=== PATIENT | female | born 1990 | race Hispanic/Latino ===

== ENCOUNTER 2020-02-11 18:11 | Emergency (ER) | payer OTHER, SELFPAY ==
[2020-02-11 18:16] VITALS: BP 129/64; PULSE 71; RESP 18; TEMP 35.9; O2SAT 100
--- NOTE | 2020-02-11 19:09 | ED.PREGNANCY ---
HPI - General Chief complaint: Vaginal Bleeding Stated complaint: 10 weeks /bleeding Time Seen by Provider: 02/11/20 19:06 History of Present Illness HPI Narrative: 29 yo female at approximately 10 weeks gestation presents to the ED for vaginal bleeding. She has had spotting for the past 3 days. Today she started passing clots and cramping. She suspects that she is having a miscarriage. Related Data Allergies Allergy/AdvReac Type Severity Reaction Status Date / Time No Known Drug Allergies Allergy Unknown Verified 07/10/16 14:24 Review of Systems Review of Systems: All systems reviewed & are unremarkable except as noted in HPI and below Constitutional: Constitutional: Denies fever(s) Cardiovascular: Cardiovascular: Denies chest pain Respiratory: Respiratory: Denies dyspnea Gastrointestinal: Gastrointestinal: Denies diarrhea, Denies nausea and Denies vomiting Genitourinary: Genitourinary: Denies dysuria and Reports pelvic pain Neurologic: Denies dizziness and Denies weakness Hematologic/Lymphatic: Hematologic/Lymphatic: Denies easy bleeding [facility] Past Medical History Medical History (Updated 02/15/20 @ 14:13 by Scot Sequeira MD) Healthy adult Social History Social History (Updated 02/15/20 @ 14:13 by Scot Sequeira MD) Smoking status: Never smoker Gender identity (if verbalized by the patient): Female Exam Const: General: healthy appearing, no acute distress and alert Orientation/consciousness: patient oriented x3 HENMT: Head: normal to inspection Neck: Neck: normal visual inspection and no lymphadenopathy Chest: Chest palpation & inspection: no tenderness Resp: Effort & Inspection: normal respiratory effort Auscultation: clear to auscultation bilaterally, no rales, no rhonchi and no wheezes Cardio: Jugular venous distension: no JVD Rate: regular rate Rhythm: regular rhythm Heart sounds: no murmurs GI: Inspection: non-distended GI Palp: Yes Soft to palpation and No Tenderness to palpation present (GI) : Other: Cervix minimally open with what appears to be tissue exposed Skin: General skin exam: normal color Neuro: General: patient oriented x3 and moves all extremities Speech: normal speech Extrem: General: no edema Psych: Appearance: well kempt Affect: normal affect Course Vital Signs Vital signs: Vital Signs Temperature 35.9 C L 02/11/20 18:16 Pulse Rate 71 02/11/20 18:16 Respiratory Rate 18 02/11/20 18:16 Blood Pressure 129/64 02/11/20 18:16 Pulse Oximetry 100 02/11/20 18:16 Temperature 35.9 C L 02/11/20 18:16 Pulse Rate 78 02/11/20 22:05 Respiratory Rate 16 02/11/20 22:05 Blood Pressure 128/72 02/11/20 22:05 Pulse Oximetry 99 02/11/20 22:05 Procedures Other Procedure Procedure 1: Other Procedure: Bedside transabdominal US IUPseen. Slightly small for dates. No heart activity seen MDM - OB/Uterine Contractions MDM Narrative Medical decision making narrative: I informed the patient that she appears to be having a miscarriage. Her OB was informed and will arrange follow-up. Rh positive. Lab Data Attestation: I reviewed the patient's lab results. Labs: Lab Results 02/11/20 Range/Units 20:34 Blood Type B Positive Antibody Screen Negative Screen Not Reportable Baby's Blood Type Not Reportable Baby's CECILE Not Reportable Doses of RhIg Required 0 Discharge Plan Discharge Clinical Impression: Incomplete Patient Disposition: Home, Self-Care Condition: Stable Instructions: Miscarriage (ED) Additional Instructions: Return for bleeding that soaks more than 2 pads per hour. Call your OBGYN on Friday to arrange follow-up. Prescriptions: New ibuprofen 600 mg tablet 600 mg PO QID PRN (Reason: pain) Qty: 30 RF: 0 ibuprofen 600 mg tablet 600 mg PO QID PRN (Reason: pain) Qty: 30 RF: 0 Follow-up/Referrals:
[2020-02-11 22:05] VITALS: BP 128/72; PULSE 78; RESP 16; O2SAT 99
== END 2020-02-11 22:07 | disposition home or self-care (01) ==
PROVIDERS: Emergency Provider Emergency Medicine; PCP Registered Nurse
DX: O03.4 Incomplete spontaneous abortion without complication (principal)
CPT/HCPCS: 36415; 85461; 99284